=== PATIENT | male | born 1995 | race Caucasian/White ===

== ENCOUNTER 2022-07-23 23:23 | Emergency (ER) | payer OTHER, SELFPAY ==
[2022-07-23 23:30] VITALS: BP 133/88; PULSE 88; RESP 18; TEMP 37.1; O2SAT 93; BMI 23.5
--- NOTE | 2022-07-23 23:49 | ED.GENADULT ---
HPI - General Adult General Chief complaint: Shortness of Breath/Dyspnea Stated complaint: covid pos, fever, shortness of breath Time Seen by Provider: 07/23/22 23:28 History of Present Illness HPI narrative: Pt tested positive for COVID this AM @ 0800. Symptoms started yesterday. Fevers up to 103, SOB, and marked fatigue. Taking Aleve for fever which has been slightly helpful. Concerned about fatigue 26-year-old young man presenting to the emergency department with fever and fatigue beginning yesterday. Home COVID test quickly went positive. Measured fever up to 103. Feels a little short of breath just very tired. Is worried about the latter in particular. Thinks he probably got it when he was just down In [place]. Had taken 600 mg of ibuprofen an hour to an hour and a half ago. Was vaccinated for COVID. Would like help to bring down the fever. Related Data Home Medications Medication Instructions Recorded Confirmed No Known Home Medications 07/23/22 07/23/22 Allergies Allergy/AdvReac Type Severity Reaction Status Date / Time amoxicillin [From Augmentin] Allergy Intermediate Headache Verified 07/23/22 23:36 clavulanic acid Allergy Intermediate Headache Verified 07/23/22 23:36 [From Augmentin] Review of Systems Status of ROS: Reports: 6 or more systems reviewed and unremarkable except as noted in History and below [facility] Social History Smoking Status: Never smoker Do you use any of these nicotine containing products: None Second hand tobacco smoke exposure: No How often do you have a drink containing alcohol: monthly or less How many standard drinks containing alcohol do you have on a typical day: 1 or 2 How often do you have six or more drinks on one occasion: Never AUDIT-C Alcohol total score: 1 Non-prescribed substance use: denies use service: No Exam Narrative: Exam Narrative: Pleasant. NAD. Seems tired. Cranial nerves 2-12 intact. Skin is warm and dry no rashes apparent.. Cheeks little flushed. Breathing easily. Lungs are clear. Oropharynx is moist. Neck is supple without lymphadenopathy. Heart with regular rate and rhythm murmur rub or gallop appreciated. Extremities well perfused without edema. Const: Vital Signs, click to edit/add: Vital Signs - 24 hr 07/23/22 23:30 07/24/22 00:30 07/24/22 00:30 Temperature 98.7 F Pulse Rate Pulse Rate [Pulse Oximeter] 88 Respiratory Rate 18 Blood Pressure 115/76 Blood Pressure [Ri ght Upper Arm] 133/88 Pulse Oximetry 93 93 Oxygen Delivery Me thod Room Air 07/24/22 00:30 07/24/22 00:32 07/24/22 01:00 Temperature Pulse Rate 81 86 75 Pulse Rate [Pulse Oximeter] Respiratory Rate Blood Pressure 115/76 Blood Pressure [Ri ght Upper Arm] Pulse Oximetry 94 95 94 Oxygen Delivery Me thod 07/24/22 01:02 07/24/22 01:30 07/24/22 01:31 Temperature 98.0 F 98.0 F Pulse Rate 83 Pulse Rate [Pulse Oximeter] 84 84 Respiratory Rate 18 18 Blood Pressure 109/75 Blood Pressure [Ri ght Upper Arm] 125/78 125/78 Pulse Oximetry 95 95 Oxygen Delivery Me thod Room Air Documenting provider has reviewed patient's vital signs: yes Course Vital Signs Vital signs: Initial Vital Signs Temperature 98.7 F 07/23/22 23:30 Temperature Source Temporal Artery Scan 07/23/22 23:30 Pulse Rate 88 07/23/22 23:30 Pulse Rhythm Regular 07/23/22 23:30 Pulse Strength 3+ Normal 07/23/22 23:30 Respiratory Rate 18 07/23/22 23:30 Blood Pressure 133/88 07/23/22 23:30 Blood Pressure Mean 103 07/23/22 23:30 Blood Pressure Position Semi-Fowlers 07/23/22 23:30 Pulse Oximetry 93 07/23/22 23:30 Oxygen Delivery Method Room Air 07/23/22 23:30 Vital Signs Temperature 98.7 F 07/23/22 23:30 Pulse Rate 88 07/23/22 23:30 Respiratory Rate 18 07/23/22 23:30 Blood Pressure 133/88 07/23/22 23:30 Pulse Oximetry 93 07/23/22 23:30 Oxygen Delivery Method Room Air 07/23/22 23:30 Temperature 98.0 F 07/24/22 01:31 Pulse Rate 84 07/24/22 01:31 Respiratory Rate 18 07/24/22 01:31 Blood Pressure 125/78 07/24/22 01:31 Pulse Oximetry 95 07/24/22 01:30 Oxygen Delivery Method Room Air 07/24/22 01:30 Medical Decision Making MDM Narrative Medical decision making narrative: Is given acetaminophen. Thought would screen for influenza as well. On reassessment looks like he feels a little bit better. Seems to have better energy. Maintained oxygenation in the mid 90s and above. Indeed positive for COVID negative for influenza. See patient discharge plan Lab Data Lab results reviewed: Yes I reviewed the patient's lab results Labs: Lab Results 07/24/22 Range/Units 00:05 SARS-CoV-2 (PCR) POSITIVE SARS-CoV-2 A (Negative) Influenza Type A (PCR) Negative PCR FLU A (Negative) Influenza Type B (PCR) Negative PCR FLU B (Negative) Discharge Plan Discharge Clinical Impression: SARS-CoV-2 positive Patient Disposition: Home, Self-Care Condition: Stable Additional Instructions: Focus on hydration. Can take up to 800 mg of ibuprofen or up to 1000 mg of acetaminophen per dose. These can be combined as well. Return for increasing persistent shortness of breath where oxygen saturations are 90% or less. Unfortunately recommendations are to quarantine for 10 days from 1st day of symptoms. Prescriptions: No Action No Known Home Medications Follow Up/Referrals: Provider,Not a Local [Primary Care Provider] - Stand Alone Forms: [employer] Info Instructions
[2022-07-24] MEDS: ACETAMINOPHEN 500 MG TABLET 1000 MG PO (00:04)
--- OUTSIDE RECORDS SUMMARY | 2022-07-24 00:22 | XMS_ITS | Continuity of Care Document ---
Author Name Unknown Organization [facility] Address Unknown Care Team Providers Care Training Development Director Name Role Phone Sakina Xie Primary Care Physician Encounter [id number] Date(s): 02/06/22 - 02/06/22 [facility] [address] [address]- Encounter Diagnosis Acute upper respiratory infection of multiple sites(Discharge Diagnosis) - 02/06/22 Discharge Disposition: Home Attending Physician: Abiel Mayberry Allergies, Adverse Reactions, Alerts Substance Reaction Severity Status amoxicillin-clavulanate Acti ve Assessment and Plan Extracted from: Title:Family Medicine Office Visit Note Author:Abiel Nye Date:02/06/22 1.??Acute upper respiratory infection of multiple sites??J06.9 Reviewed negative strep, flu and covid results with patient. Due to length of symptoms will go ahead and send??antibiotic at this time. patient will be leaving back home to [place] tomorrow. The following education was given to patient: -rest -fluids -warm teas with honey and lemon -throat lozenges -cool mist humidifier -Flonase nasal spray -dayquil/nyquil as needed ? If worsening before patient leaves town??patient is to notify clinic. If worsening after hours or once he leaves [facility] would advise she proceed to urgent care clinic. Patient verbalized understanding and is in agreement of plan ? Ordered: azithromycin, Take 2 tablets PO on Day 1, then take 1 tablet, PO, Daily, as directed on package labeling, x 5 days, # 1 packet, 0 Refill(s), Route to Pharmacy Electronically, Pharmacy: [facility], [address], cm, 02/06/22 9:40:00 WAITER/WAITRESS CAFETERIA, Height Estima... ?? Orders: POC Influenza + SARS-CoV-2 Antigen (Clinic) POC Rapid Beta Strep (Clinic) Evaluation and Management 00487 Established Patient, expanded hx and exam, low mdm, office or other outpatient visit - Completed?-- Acute upper respiratory infection of multiple sites ?? Medications Cecilia PO, 0 Refill(s) Start Date: 11/02/21 Status: Ordered azithromycin 250 mg oral tablet Take 2 tablets PO on Day 1, then take 1 tablet, PO, Daily, as directed on package labeling, x 5 days, # 1 packet, 0 Refill(s), Route to Pharmacy Electronically, Pharmacy: [facility], [address], cm, 02/06/22 9:40:00 WAITER/WAITRESS CAFETERIA, Height Estima... 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 Results Laboratory List Name Date POC Influenza + SARS-CoV-2 Antigen (Clin ic) 02/06/22 POC Rapid Beta Strep (Clinic) 02/06/22 Most recent to oldest [Reference Range]: 1 POC Rapid Beta Strep Negative (02/06/22 10:04 AM) Rapid Influenza A Screen Negative (02/06/22 10:04 AM) Rapid Influenza B Screen Negative (02/06/22 10:04 AM) Internal QC Validated - Strep Yes (02/06/22 10:04 AM) POC SARS-CoV-2 Ag Not Detected (02/06/22 10:04 AM) Internal QC Validated- Flu + COVID Yes (02/06/22 10:04 AM) Vital Signs Most recent to oldest [Reference Range]: 1 Height (in) 68.9 inch (02/06/22 9:40 AM) Weight (kg) 69.94 kg (02/06/22 9:40 AM) Blood Pressure [94-140/60-90 mmHg] 128/8 2mmHg (02/06/22 9:40 AM) Oxygen Saturation [90-100 %] 97 % (02/06/22 9:40 AM) O2 Therapy Room air (02/06/22 9:40 AM) Temperature Tympanic [96-101 DegF] 97.8 DegF (02/06/22 9:40 AM) Body Mass Index, Estimated (cm) 22.84 kg /m2 (02/06/22 9:40 AM) Social History Social History Type Response Smoking Status Never (less than 100 in lifetime);Never entered on: 02/06/22 Sex Male Student Health Office/Clinic Note * Abiel Mayberry: PERFORM Event Display: Student Health Office/Clinic Note Authored Date: [id number] Date of Service 02/06/2022 09:13:42 Chief Complaint pt presents to the clinic for sore throat, congestion, headaches since last Sunday. pt taking Advil and Dayquil. History of Present Illness Patient presents to clinic for concerns of sore throat, congestion and cough. States he started with symptoms 6 days ago. Has progressively worsened. Loss of voice today. ?? fever-no congestion-yes sore throat-yes cough-yes SOB-no Wheezing-no NVD-no loss of taste or smell-no ?? States he has taken dayquil and advil for symptoms no sick exposures asthma as a child. No issues at this time Review of Systems Constitutional: ??No Chills, No Fatigue, No fever. ?? Eye: ??No discharge, No eye pain, No visual changes. ?? Ear/Nose/Mouth/Throat:?Nasal congestion, Sore throat, No ear pain, No sinus pain. ?? Respiratory:?Cough, No Sputum production, No shortness of breath, No wheezing. ?? Cardiovascular:?No chest pain, No palpitations, No Tachycardia, No Bradycardia. ?? Gastrointestinal: ??No diarrhea, No nausea, No vomiting, No abdominal pain. ?? Genitourinary: ??No dysuria. ?? Hematology/Lymphatics: ??No swollen lymph glands. ?? Integumentary: ??No rash. ?? Neurologic: ??Alert and oriented X4. ? Physical Exam Vitals & Measurements T:??97.8?F (Tympanic)?? BP:??128/82?? SpO2:??97%?? HT:??175??cm?? WT:??69.94??kg?? BMI:??22.84?? Pain Symptoms: No ?General: ??Alert and oriented, No acute distress. ?Eye: ??Pupils are equal, round and reactive to light, Extraocular movements are intact, Normal conjunctiva. ?HENT: ??Normocephalic, Normal hearing, Oral mucosa is moist. ? Ear: Both ears, Tympanic membrane ( Not bulging, Not erythematous, Not perforated ). ? Nose: Both nostrils, Patent, No Discharge. ? Sinus: Bilateral, Frontal sinus, Maxillary sinus, No tenderness. ? Throat: Tonsils ( Bilateral tonsils, Erythematous, No exudate ), Pharynx ( Posterior, Erythematous, No exudate ). ? Glands: Bilateral, Submandibular gland, Enlarged, Not tender.?Respiratory: ??Lungs are clear to auscultation, Respirations are non- labored, Breath soundsare equal, Symmetrical chest wall expansion. ?Cardiovascular: ??Normal rate, Regular rhythm, No murmur, No gallop. ?Musculoskeletal: ??Normal range of motion, Normal strength, No deformity, Normal gait. ?Integumentary: ??Warm, Dry, Mayer, Intact. ?Neurologic: ??Alert, Oriented. ?Psychiatric: ??Cooperative, Appropriate mood & affect. ? Assessment/Plan 1.??Acute upper respiratory infection of multiple sites??J06.9 Reviewed negative strep, flu and covid results with patient. Due to length of symptoms will go ahead and send??antibiotic at this time. patient will be leaving back home to [place] tomorrow. The following education was given to patient: -rest -fluids -warm teas with honey and lemon -throat lozenges -cool mist humidifier -Flonase nasal spray -dayquil/nyquil as needed ?? If worsening before patient leaves [facility]??patient is to notify clinic. If worsening after hours or once he leaves [facility] would advise she proceed to urgent care clinic. Patient verbalized understanding and is in agreement of plan Ordered: azithromycin, Take 2 tablets PO on Day 1, then take 1 tablet, PO, Daily, as directed on package labeling, x 5 days, # 1 packet, 0 Refill(s), Route to Pharmacy Electronically, Pharmacy: [facility], [address], cm, 02/06/22 9:40:00 WAITER/WAITRESS CAFETERIA, Height Estima... ?? Orders: POC Influenza + SARS-CoV-2 Antigen (Clinic) POC Rapid Beta Strep (Clinic) Evaluation and Management 20350 Established Patient, expanded hx and exam, low mdm, office or other outpatient visit - Completed?-- Acute upper respiratory infection of multiple sites Past Medical History Historical No qualifying data Procedure/Surgical History ???Appendectomy ???Extraction of wisdom tooth ???Tumor destruction Comments: x 3 in jaw Medications Cecilia, PO azithromycin 250 mg oral tablet, Take 2 tablets PO on Day 1, then take 1 tablet, PO, as directed onpackage labeling, Daily, as directed on package labeling Nasacort AQ 55 mcg/inh nasal spray, 1 spray, each nostril, Daily Allergies amoxicillin-clavulanate Social History Alcohol Alcohol Use: Occasionally., 11/17/2021 Gender Identity/Sexuality Gender Identity: Identifies as male., 11/02/2021 Recreational Drug Use Recreational Drug Use: Never used., 11/17/2021 Tobacco Tobacco Use: Never (less than 100 in lifetime). Smokeless Tobacco Use: Never., 02/06/2022 Vaping Vaping Device Use: Never. Nicotine Use: No., 11/17/2021 Family History Family history is negative Lab Results Test Name Test Result Date/Time POC Rapid Beta Strep Negative 02/06/2022 10:04 WAITER/WAITRESS CAFETERIA Rapid Influenza A Screen Negative 02/06/2022 10:04 WAITER/WAITRESS CAFETERIA Rapid Influenza B Screen Negative 02/06/2022 10:04 WAITER/WAITRESS CAFETERIA POC SARS-CoV-2 Ag Not Detected 02/06/2022 10:04 WAITER/WAITRESS CAFETERIA Point of Care Lab Tests?? POC Rapid Beta Strep: Negative (02/06/22 10:04:00) POC SARS-CoV-2 Ag: Not Detected. (02/06/22 10:04:00) Rapid Influenza A Screen: Negative (02/06/22 10:04:00) Rapid Influenza B Screen: Negative (02/06/22 10:04:00) Other Results AUDIT-C Score AUDIT-C Score: 2 (02/06/22) Abiel Mayberry Electronically Signed On: 02.06.2022 10:17 /LENIN D: 02.06.2022 10:17 cc: Patient Care team information Care Team Personnel Name: ABDI Weldon Position: MIDLVL-Workflow Member Role: Primary Care Physician Address: Address: [address] [place] [address] [address] , F: [address]
--- OUTSIDE RECORDS SUMMARY | 2022-07-24 00:22 | XMS_ITS | Continuity of Care Document ---
Author Name Unknown Organization [facility] Address Unknown Care Team Providers Care Autocad Detailer Name Role Phone Sakina Xie Primary Care Physician Encounter [id number] Date(s): 12/19/21 - 12/19/21 [facility] [address] [address]- Encounter Diagnosis Dysuria(Discharge Diagnosis) - 12/19/21 Vitamin D deficiency(Discharge Diagnosis) - 12/19/21 Wellness examination(Discharge Diagnosis) - 12/19/21 Screening for STD (sexually transmitted disease)(Discharge Diagnosis) - 12/19/21 Discharge Disposition: Home Attending Physician: ABDI Weldon Allergies, Adverse Reactions, Alerts Substance Reaction Severity Status amoxicillin-clavulanate Acti ve Medications Cecilia PO, 0 Refill(s) Start Date: 11/02/21 Status: Ordered Nasacort AQ 55 mcg/inh nasal spray 1 spray, each nostril, Daily, 0 Refill(s) Start Date: 11/02/21 Status: Ordered Problem List No Known Problems Procedures Procedure Date Related Diagnosis Body Site Status Appendectomy Completed Extraction of wisdom tooth Completed 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 Results Laboratory List Name Date CBC with Differential ([facility]) 2 Chlamydia & Gonorrhea by PCR ([facility]) (CT/NG PCR ([facility])) 12/19/21 Comprehensive Metabolic Panel ([facility] ) 12/19/21 HIV Screen 1 and 2 ([facility]) 12/19/21 RPR Non Treponemal ([facility]) 12/19/21 Trichomonas ([facility]) 12/19/21 Vitamin D 25 Hydroxy Total ([facility]) 1 Most recent to oldest [Reference Range]: 1 WBC [4.8-10.8 K/uL] 5.0 K/uL (12/19/21 11:56 AM) RBC [4.70-6.10 M/UL] 5.33 M/UL (12/19/21:56 AM) Hemoglobin [14.0-18.0 g/dL] 16.6 g/dL (12/19/21:56 AM) Hematocrit [42.0-52.0 %] 47.5 % (12/19/21:56 AM) MCV [80.0-94.0 fL] 89.0 fL (12/19/21:56 AM) MCH [27.0-31.0 pg] 31.0 pg (12/19/21: AM) MCHC [32.0-36.0 g/dL] 34.9 g/dL (12/19/21:56 AM) Platelet [130-400 K/uL] 246 K/uL (12/19/21:56 AM) RDW [11.5-15.5 %] 12.7 % (12/19/21:56 AM) Sodium Level [137-145 MMOL/L] 139 MMOL/L (12/19/21:56 AM) Potassium Level [3.6-5.0 MMOL/L] 4.1 MMO L/L (12/19/21:56 AM) Chloride Level [98-107 MMOL/L] 101 MMOL/ L (12/19/21:56 AM) Carbon Dioxide [22-30 MMOL/L] 31 MMOL/L *HI* (12/19/21:56 AM) Glucose Level [65-110 mg/dL] 106 mg/dL (12/19/21:56 AM) BUN [7.0-20.0 mg/dL] 17.0 mg/dL (12/19/21:56 AM) Creatinine [0.5-1.3 mg/dL] 1.1 mg/dL (12/19/21:56 AM) Calcium Level [8.4-10.2 mg/dL] 10.1 mg/d L (12/19/21:56 AM) Total Protein [6.30-8.50 g/dL] 7.50 g/dL (12/19/21 11:56 AM) Albumin Level [3.5-5.0 g/dL] 5.1 g/dL *HI* (12/19/21 11:56 AM) Total Bilirubin [0.20-1.30 mg/dL] 1.00 m g/dL (12/19/21 11:56 AM) Alkaline Phosphatase [38-126 intl units/ L] 41 intl units/L (12/19/21 11:56 AM) ALT [11-66 intl units/L] 26 intl units/L (12/19/21 11:56 AM) AST [15-46 intl units/L] 18 intl units/L (12/19/21 11:56 AM) RPR Titer [None Detected] None Detected (12/19/21 11:56 AM) MPV [7.4-10.4] 8.4 (12/19/21 11:56 AM) RPR Non Treponemal [Non-Reactive] Non-Re active (12/19/21 11:56 AM) NRBC 0.00 (12/19/21 11:56 AM) Vitamin D 25 Hydroxy Total [30.00-100.00 ng/mL] 37.51 ng/mL (12/19/21 11:57 AM) HIV Screen 1/2 [Non-Reactive] Non-Reacti ve 1 (12/19/21 11:56 AM) Automated Basophils [0.2-1.0 %] 0.6 % (12/19/21 11:56 AM) Automated Absolute Basophils [0.0-0.1 K/ uL] 0.0 K/uL (12/19/21 11:56 AM) Automated Absolute Eosinophils [0.0-0.2 K/uL] 0.1 K/uL (12/19/21 11:56 AM) Automated Absolute Lymphs [1.3-2.9 K/uL] 2.1 K/uL (12/19/21 11:56 AM) Automated Absolute Monocytes [0.3-0.8 K/ uL] 0.4 K/uL (12/19/21 11:56 AM) Automated Absolute Neutrophils [2.2-4.8 K/uL] 2.4 K/uL (12/19/21 11:56 AM) Automated Eosinophils [0.9-2.9 %] 1.4 % (12/19/21 11:56 AM) Automated Lymphocytes [20.5-45.5 %] 42.4 % (12/19/21 11:56 AM) Automated Monocytes [5.5-11.7 %] 7.7 % (12/19/21 11:56 AM) Automated Segmented Neutrophils [43.0-65 .0 %] 47.9 % (12/19/21 11:56 AM) Chlamydia by PCR [Not detected] NOT DETE CTED (12/19/21 11:57 AM) Neisseria gonorrhoeae PCR [Not detected] NOT DETECTED (12/19/21 11:57 AM) Trichomonas - PCR [Not detected] NOT DET ECTED (12/19/21 11:57 AM) 1Result Comment: This is a Screen Assay test: A NON-REACTIVE Test result means that HIV-1 and HIV-2 antibodies were not detected in the specimen. However, this does not exclude possible infection with HIV. A REACTIVE Test result means that HIV-1 and/or HIV-2 antibodies have been detected in the specimen. This is a Preliminary Positive for HIV-1 and/or HIV-2 antibodies. Any Preliminary Positive samples will be re-drawn at least one day later than the primary screen and sent to [facility] for Confirmation. Social History Social History Type Response Smoking Status Never (less than 100 in lifetime);Never entered on: 11/17/21 Sex Male Patient Care team information Care Team Personnel Name: ABDI Weldon Position: MIDLVL-Workflow Member Role: Primary Care Physician Address: Address: [address] [place] [address] [address] , F: [place], [place] [id number] [place] [address]
--- OUTSIDE RECORDS SUMMARY | 2022-07-24 00:22 | XMS_ITS | Continuity of Care Document ---
Author Name Unknown Organization [facility] Address Unknown Care Team Providers Care Motor Assembler Name Role Phone Sakina Xie Primary Care Physician [phone] Encounter [id number] Date(s): 02/06/22 - 02/06/22 [facility] [address] [address] [place] [address]- Discharge Disposition: Home Allergies, Adverse Reactions, Alerts Substance Reaction Severity Status amoxicillin-clavulanate Acti ve Medications Cecilia PO, 0 Refill(s) Start Date: 11/02/21 Status: Ordered azithromycin 250 mg oral tablet Take 2 tablets PO on Day 1, then take 1 tablet, PO, Daily, as directed on package labeling, x 5 days, # 1 packet, 0 Refill(s), Route to Pharmacy Electronically, Pharmacy: [facility], [address], cm, 02/06/22 9:40:00 DIGITAL ADVERTISING ANALYST, Height Estima... 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 [address] , F: [place] [address]- [place]
--- OUTSIDE RECORDS SUMMARY | 2022-07-24 00:23 | XMS_ITS | Continuity of Care Document ---
Author Name Unknown Organization [facility] Address Unknown Encounter [id number] Date(s): 11/02/21 - 11/02/21 [facility] [address] [place], [place] [address] Allergies, Adverse Reactions, Alerts Substance Reaction Severity [...] (less than 100 in lifetime);Never entered on: 11/02/21 Sex Male
--- OUTSIDE RECORDS SUMMARY | 2022-07-24 00:23 | XMS_ITS | Continuity of Care Document ---
Author Name Unknown Organization [facility] Address Unknown Encounter [id number] Date(s): 11/08/21 - 11/08/21 [facility] [address] [address] Encounter Diagnosis Dysuria(Discharge Diagnosis) - 11/08/21 Discharge Disposition: Home Attending Physician: ABDI Weldon Admitting Physician: ABDI Weldon Allergies, Adverse Reactions, Alerts Substance Reaction Severity Status amoxicillin-clavulanate Acti ve Assessment and Plan Extracted from: Title:Dysuria Author:ABDI Weldon Date: Dysuria??R30.0 Consider Mycoplasma Treatment today directed at mycoplasma Will repeat GCC testing. Patient desires blood work after Nov 17. Ok to repeat all testing at that time given risk Educated patient on today's diagnosis, proper use of prescribed and OTC medications and potential for side effects or adverse reactions. Discussed additional comfort measures available. Advised on return instructions as well as ER precautions.? Ordered: Chlamydia & Gonorrhea by PCR ([facility]) Chlamydia & Gonorrhea by PCR ([facility]) POC Urinalysis Dipstick, Automated w/o microscopy (Clinic) Trichomonas ([facility]) ?? Orders: moxifloxacin, 1 tab ( 400 mg ), PO, Daily, x 7 days, # 7 tab, 0 Refill(s), Route to Pharmacy Electronically, Pharmacy: [facility]/pharmacy #[id number] Evaluation and Management [id number] Established Patient, detail hx and exam, moderate mdm, office or other outpatient visit - Completed?-- Dysuria ?? Future Appointments Appointment Date:11/18/2021 12:40:00 PM Scheduled Provider: Location:[facility] Appointment Type:Special procedure Diagnostic Tests Pending * Chlamydia & Gonorrhea by PCR ([facility]) 11/08/21 * Trichomonas ([facility]) 11/08/21 Future Scheduled Tests Laboratory* Chlamydia & Gonorrhea by PCR ([facility]) 11/08/21 Medications Cecilia PO, 0 Refill(s) Start Date: 11/02/21 Status: Ordered moxifloxacin 400 mg oral tablet 1 tab ( 400 mg ), PO, Daily, x 7 days, # 7 tab, 0 Refill(s), Route to Pharmacy Electronically, Pharmacy: [facility]/pharmacy #[id number] Start Date: 11/08/21 Stop Date: 11/15/21 Status: Ordered Nasacort AQ 55 mcg/inh nasal spray 1 spray, each nostril, Daily, 0 Refill(s) Start Date: 11/02/21 Status: Ordered Problem List No Known Problems Procedures Procedure Date Related Diagnosis Body Site Status Appendectomy Completed Extraction of wisdom tooth Completed 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 Results Laboratory List Name Date POC Urinalysis Dipstick, Automated w/o m icroscopy (Clinic) 11/08/21 Most recent to oldest [Reference Range]: 1 Leukocytes Urine Dipstick Negative (11/08/21 3:09 PM) Nitrite Urine Dipstick Negative (11/08/21 3:09 PM) Urobilinogen Urine Dipstick 1 mg/dl (11/08/21 3:09 PM) pH Urine Dipstick 8.5 (11/08/21 3:09 PM) Blood Urine Dipstick Negative (11/08/21 3:09 PM) Specific [place] Urine Dipstick 1.015 (11/08/21 3:09 PM) Urine Color Urine Dipstick Pale yellow (11/08/21 3:09 PM) Urine Appearance Urine Dipstick Clear (11/08/21 3:09 PM) Glucose Urine Dipstick Negative (11/08/21 3:09 PM) Ketones Urine Dipstick Negative (11/08/21 3:09 PM) Bilirubin Urine Dipstick Negative (11/08/21 3:09 PM) Urine Automation Status automated withou t microscopy (11/08/21 3:09 PM) POC Protein Urine Dipstick Negative (11/08/21 3:09 PM) Vital Signs Most recent to oldest [Reference Range]: 1 Height (in) 68.9 inch (11/08/21 2:52 PM) Weight (kg) 73.94 kg (11/08/21 2:52 PM) Heart Rate [60-100 bpm] 79 bpm (11/08/21 2:52 PM) Blood Pressure [94-140/60-90 mmHg] 118/7 6mmHg (11/08/21 2:52 PM) Respiratory Rate [12-30 breaths/min] 16 breaths/min (11/08/21 2:52 PM) Oxygen Saturation [90-100 %] 97 % (11/08/21 2:52 PM) O2 Therapy Room air (11/08/21 2:52 PM) Temperature Tympanic [96-101 DegF] 98.0 DegF (11/08/21 2:52 PM) Body Mass Index, Estimated (cm) 24.14 kg /m2 (11/08/21 2:52 PM) Social History Social History Type Response Smoking Status Never (less than 100 in lifetime);Never entered on: 11/08/21 Sex Male
--- OUTSIDE RECORDS SUMMARY | 2022-07-24 00:23 | XMS_ITS | Continuity of Care Document ---
Author Name Unknown Organization [facility] Address Unknown Encounter [id number] Date(s): 11/17/21 - 11/17/21 [facility] [address] [address]- Encounter Diagnosis Dysuria(Discharge Diagnosis) - 11/17/21 History of thyroid disorder(Discharge Diagnosis) - 11/17/21 Wellness examination(Discharge Diagnosis) - 11/17/21 Family history of hypercholesterolemia(Discharge Diagnosis) - 11/17/21 Discharge Disposition: Home Attending Physician: ABDI Weldon Admitting Physician: ABDI Weldon Allergies, Adverse Reactions, Alerts Substance Reaction Severity Status amoxicillin-clavulanate Acti ve Assessment and Plan Extracted from: Title:Dysuria/ Urethritis Author:ABDI Weldon Date:11/17/21 Dysuria??R30.0 Assumed urethritis Assumed mycoplasma after negative GCC testing and persistent dysuria. Patient has had before. Did not fully resolve after 7 days moxy Treat with Doxy for 10 days Referral to Uro if not improved after Educated patient on today's diagnosis, proper use of prescribed and OTC medications and potential for side effects or adverse reactions. Discussed additional comfort measures available. Advised on return instructions as well as ER precautions.? STI labs today including blood ? Ordered: Chlamydia & Gonorrhea by PCR ([facility]) POC Urinalysis Dipstick, Automated w/o microscopy ([facility]) Trichomonas ([facility]) ?? Family history of hypercholesterolemia??Z83.42 General wellness labs today as well as cholesterol and thyroid panel Will notify of results Ordered: CBC with Differential ([facility]) Cholesterol Total ([facility]) Comprehensive Metabolic Panel ([facility]) Free T4 ([facility]) HIV Screen 1 and 2 ([facility]) Lipid with Calculated LDL ([facility]) RPR Non Treponemal ([facility]) Triglycerides ([facility]) TSH ([facility]) Vitamin D 25 Hydroxy Total ([facility]) ?? History of thyroid disorder??Z86.39 Ordered: CBC with Differential ([facility]) Cholesterol Total ([facility]) Comprehensive Metabolic Panel ([facility]) Free T4 ([facility]) HIV Screen 1 and 2 ([facility]) Lipid with Calculated LDL ([facility]) RPR Non Treponemal ([facility]) Triglycerides ([facility]) TSH ([facility]) Vitamin D 25 Hydroxy Total ([facility]) ?? Wellness examination??Z00.00 Ordered: CBC with Differential ([facility]) Cholesterol Total ([facility]) Comprehensive Metabolic Panel ([facility]) Free T4 ([facility]) HIV Screen 1 and 2 ([facility]) Lipid with Calculated LDL ([facility]) RPR Non Treponemal ([facility]) Triglycerides ([facility]) TSH ([facility]) Vitamin D 25 Hydroxy Total ([facility]) ?? Orders: doxycycline, 1 cap ( 100 mg ), PO, BID, x 10 days, # 20 cap, 0 Refill(s), Route to Pharmacy Electronically, Pharmacy: [facility]/pharmacy #[id number], 175, cm, 11/17/21 13:18:00 CDT, Height Estimated (cm), 72.57, kg, 11/17/21 13:18:00 CDT, Weight (kg) Evaluation and Management [id number] Established Patient, detail hx and exam, moderate mdm, office or other outpatient visit - Completed?-- Family history of hypercholesterolemia Wellness examination History of thyroid disorder Dysuria ?? Diagnostic Tests Pending * RPR Non Treponemal ([facility]) 11/17/21 * TSH ([facility]) 11/17/21 * Vitamin D 25 Hydroxy Total ([facility]) 11/17/21 * HIV Screen 1 and 2 ([facility]) 11/17/21 Future Scheduled Tests Laboratory* Chlamydia & Gonorrhea by PCR ([facility]) 11/08/21 Medications Cecilia PO, 0 Refill(s) Start Date: 11/02/21 Status: Ordered doxycycline monohydrate 100 mg oral capsule 1 cap ( 100 mg ), PO, BID, x 10 days, # 20 cap, 0 Refill(s), Route to Pharmacy Electronically, Pharmacy: [facility]/pharmacy #[id number], 175, cm, 11/17/21 13:18:00 CDT, Height Estimated (cm), 72.57, kg, 11/17/2212:18:00 CDT, Weight (kg) Start Date: 11/17/21 Stop Date: 11/27/21 Status: Ordered Nasacort AQ 55 mcg/inh nasal spray 1 spray, each nostril, Daily, 0 Refill(s) Start Date: 11/02/21 Status: Ordered Problem List No Known Problems Procedures Procedure Date Related Diagnosis Body Site Status Appendectomy Completed Extraction of wisdom tooth Completed 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 Results Laboratory List Name Date Trichomonas ([facility]) 11/17/21 CBC with Differential ([facility]) 11/17/21 Chlamydia & Gonorrhea by PCR ([facility]) 11/17/21 Comprehensive Metabolic Panel ([facility] ) 11/17/21 Free T4 ([facility]) 11/17/21 Lipid with Calculated LDL ([facility]) 11/17/21 POC Urinalysis Dipstick, Automated w/o m icroscopy ([facility]) 11/17/21 Most recent to oldest [Reference Range]: 1 WBC [4.8-10.8 K/uL] 4.7 K/uL *LOW* (11/17/21 1:42 PM) RBC [4.70-6.10 M/UL] 5.13 M/UL (11/17/21 1:42 PM) Hemoglobin [14.0-18.0 g/dL] 16.4 g/dL (11/17/21 1:42 PM) Hematocrit [42.0-52.0 %] 46.7 % (11/17/21 1:42 PM) MCV [80.0-94.0 fL] 90.9 fL (11/17/21 1:42 PM) MCH [27.0-31.0 pg] 31.9 pg *HI* (11/17/21 1:42 PM) MCHC [32.0-36.0 g/dL] 35.1 g/dL (11/17/21 1:42 PM) Platelet [130-400 K/uL] 235 K/uL (11/17/21 1:42 PM) RDW [11.5-15.5 %] 13.0 % (11/17/21 1:42 PM) Sodium Level [137-145 MMOL/L] 138 MMOL/L (11/17/21 1:42 PM) Potassium Level [3.6-5.0 MMOL/L] 3.9 MMO L/L (11/17/21 1:42 PM) Chloride Level [98-107 MMOL/L] 103 MMOL/ L (11/17/21 1:42 PM) Carbon Dioxide [22-30 MMOL/L] 29 MMOL/L (11/17/21 1:42 PM) Glucose Level [65-110 mg/dL] 108 mg/dL (11/17/21 1:42 PM) BUN [7.0-20.0 mg/dL] 16.0 mg/dL (11/17/21 1:42 PM) Creatinine [0.5-1.3 mg/dL] 1.1 mg/dL (11/17/21 1:42 PM) Calcium Level [8.4-10.2 mg/dL] 10.2 mg/d L (11/17/21 1:42 PM) Total Protein [6.30-8.50 g/dL] 7.50 g/dL (11/17/21 1:42 PM) Albumin Level [3.5-5.0 g/dL] 5.3 g/dL *HI* (11/17/21 1:42 PM) Cholesterol [0-200 mg/dL] 114 mg/dL (11/17/21 1:42 PM) Triglycerides [0-200 mg/dL] 61 mg/dL (11/17/21 1:42 PM) HDLC [35.0-100.0 mg/dL] 48.6 mg/dL (11/17/21 1:42 PM) Total Bilirubin [0.20-1.30 mg/dL] 1.40 m g/dL *HI* (11/17/21 1:42 PM) Alkaline Phosphatase [38-126 intl units/ L] 48 intl units/L (11/17/21 1:42 PM) ALT [11-66 intl units/L] 15 intl units/L (11/17/21 1:42 PM) AST [15-46 intl units/L] 15 intl units/L (11/17/21 1:42 PM) MPV [7.4-10.4] 8.5 (11/17/21 1:42 PM) T4 Free [0.78-2.19 ng/dL] 1.10 ng/dL (11/17/21 1:42 PM) Leukocytes Urine Dipstick Negative (11/17/21 1:23 PM) Nitrite Urine Dipstick Negative (11/17/21 1:23 PM) Urobilinogen Urine Dipstick 1 mg/dl (11/17/21 1:23 PM) pH Urine Dipstick 7 (11/17/21 1:23 PM) Blood Urine Dipstick Negative (11/17/21 1:23 PM) Specific [place] Urine Dipstick 1.020 (11/17/21 1:23 PM) Urine Color Urine Dipstick Yellow (11/17/21 1:23 PM) Urine Appearance Urine Dipstick Clear (11/17/21 1:23 PM) Glucose Urine Dipstick Negative (11/17/21 1:23 PM) Ketones Urine Dipstick Negative (11/17/21 1:23 PM) Bilirubin Urine Dipstick Negative (11/17/21 1:23 PM) NRBC 0.10 (11/17/21 1:42 PM) Automated Basophils [0.2-1.0 %] 0.9 % (11/17/21 1:42 PM) Automated Absolute Basophils [0.0-0.1 K/ uL] 0.0 K/uL (11/17/21 1:42 PM) Automated Absolute Eosinophils [0.0-0.2 K/uL] 0.0 K/uL (11/17/21 1:42 PM) Automated Absolute Lymphs [1.3-2.9 K/uL] 1.9 K/uL (11/17/21 1:42 PM) Automated Absolute Monocytes [0.3-0.8 K/ uL] 0.3 K/uL (11/17/21 1:42 PM) Automated Absolute Neutrophils [2.2-4.8 K/uL] 2.4 K/uL (11/17/21 1:42 PM) Automated Eosinophils [0.9-2.9 %] 0.9 % (11/17/21 1:42 PM) Automated Lymphocytes [20.5-45.5 %] 40.1 % (11/17/21 1:42 PM) Automated Monocytes [5.5-11.7 %] 6.3 % (11/17/21 1:42 PM) Automated Segmented Neutrophils [43.0-65 .0 %] 51.8 % (11/17/21 1:42 PM) Chlamydia by PCR [Not detected] NOT DETE CTED (11/17/21 2:23 PM) Neisseria gonorrhoeae PCR [Not detected] NOT DETECTED (11/17/21 2:23 PM) Internal QC Validated - Urine Yes (11/17/21 1:23 PM) Trichomonas - PCR [Not detected] NOT DET ECTED (11/17/21 2:23 PM) POC Protein Urine Dipstick Negative (11/17/21 1:23 PM) LDL Calculated 53 mg/dL (11/17/21 1:42 PM) Vital Signs Most recent to oldest [Reference Range]: 1 Height (in) 68.9 inch (11/17/21 1:18 PM) Weight (kg) 72.57 kg (11/17/21 1:18 PM) Heart Rate [60-100 bpm] 92 bpm (11/17/21 1:18 PM) Blood Pressure [94-140/60-90 mmHg] 104/7 6mmHg (11/17/21 1:18 PM) Respiratory Rate [12-30 breaths/min] 16 breaths/min (11/17/21 1:18 PM) Oxygen Saturation [90-100 %] 98 % (11/17/21 1:18 PM) O2 Therapy Room air (11/17/21 1:18 PM) Temperature Tympanic [96-101 DegF] 97.9 DegF (11/17/21 1:18 PM) Body Mass Index, Estimated (cm) 23.7 kg/ m2 (11/17/21 1:18 PM) Social History Social History Type Response Smoking Status Never (less than 100 in lifetime);Never entered on: 11/17/21 Sex Male
--- OUTSIDE RECORDS SUMMARY | 2022-07-24 00:23 | XMS_ITS | Continuity of Care Document ---
Author Name Unknown Organization [facility] Address Unknown Encounter [id number] Date(s): 11/02/21 - 11/02/21 [facility] [address] [address]- Encounter Diagnosis Increased urinary frequency(Discharge Diagnosis) - 11/02/21 Routine screening for STI (sexually transmitted infection)(Discharge Diagnosis) - 11/02/21 Encounter for laboratory test(Discharge Diagnosis) - 11/02/21 Discharge Disposition: Home Attending Physician: ABDI Mathew Admitting Physician: ABDI Mathew Allergies, Adverse Reactions, Alerts Substance Reaction Severity Status amoxicillin-clavulanate Acti ve Assessment and Plan Extracted from: Title:Urinary frequency Author:Jaymie Mathew Date:11/02/21 1.??Increased urinary freque ncy??R35.0 Ordered: Culture Urine ( Clinic) ?? 2.??Routine screening for STI (sexually transmitted infection)??Z11.3 IF SYMPTOMS HAVE NOT RESOLVED IN THE NEXT??7 DAYS RETURN TO CLINIC. ??IF SYMPTOMS DEVELOP (DISCHARGE FROM PENIS, PAIN WITH URINATION, TESTICLE PAIN/SWELLING, BACK PAIN, NAUSEA/VOMITING, ABDOMINAL PAIN, UNCONTROLLED FEVER >103 F, OR ANY SYMPTOMS YOU ARE CONCERNED ABOUT) GO DIRECTLY TO THE EMERGENCY ROOM ?? TYLENOL 500-1000 MG EVERY 8 HOURS NEEDED FOR PAIN/FEVER. ??IBUPROFEN 400-600 MG EVERY 8 HOURS NEEDED FOR PAIN/FEVER. ? Pt in NAD.?? Doubt SBI/pyelo.?? Unclear etiology.?? No evidence of infectious etiology on UA.?? Pending urine culture/GC/Chlamydia.?? Recommended watchful waiting along with tx as above. ? Orders: Chlamydia & Gonorrhea by PCR ([facility]) POC Urinalysis Dipstick, Automated w/o microscopy (Clinic) Diagnostic Tests Pending * Chlamydia & Gonorrhea by PCR ([facility]) 11/02/21 * Culture Urine ([facility]) 11/02/21 Medications Cecilia PO, 0 Refill(s) Start Date: [...] POC Urinalysis Dipstick, Automated w/o m icroscopy ([facility]) 11/02/21 Most recent to oldest [Reference Range]: 1 Leukocytes Urine Dipstick Negative (11/02/21 2:23 PM) Nitrite Urine Dipstick Negative (11/02/21 2:23 PM) Urobilinogen Urine Dipstick 1 mg/dl (11/02/21 2:23 PM) pH Urine Dipstick 6.5 (11/02/21 2:23 PM) Blood Urine Dipstick Negative (11/02/21 2:23 PM) Specific [place] Urine Dipstick 1.025 (11/02/21 2:23 PM) Urine Color Urine Dipstick Brown (11/02/21 2:23 PM) Urine Appearance Urine Dipstick Clear (11/02/21 2:23 PM) Glucose Urine Dipstick Negative (11/02/21 2:23 PM) Ketones Urine Dipstick Other: 80 mg/dL (11/02/21 2:23 PM) Bilirubin Urine Dipstick Moderate (11/02/21 2:23 PM) POC Protein Urine Dipstick 1+ (30 mg/dl) (11/02/21 2:23 PM) Vital Signs Most recent to oldest [Reference Range]: 1 Height (in) 68.9 inch (11/02/21 2:15 PM) Weight (kg) 72.57 kg (11/02/21 2:15 PM) Heart Rate [60-100 bpm] 75 bpm (11/02/21 2:15 PM) Blood Pressure [94-140/60-90 mmHg] 128/7 6mmHg (11/02/21 2:15 PM) Respiratory Rate [12-30 breaths/min] 15 breaths/min (11/02/21 2:15 PM) Oxygen Saturation [90-100 %] 98 % (11/02/21 2:15 PM) Temperature Tympanic [96-101 DegF] 97.3 DegF (11/02/21 2:15 PM) Body Mass Index, Estimated (cm) 23.7 kg/ m2 (11/02/21 2:15 PM) Social History Social History Type Response Smoking Status Never (less than 100 in lifetime);Never entered on: 11/02/21 Sex Male Hospital Discharge Instructions Patient Education 11/02/2021 14:36:46 Urinary Frequency, Adult Urinary Frequency, Adult Urinary frequency means urinating more often than usual. You may urinate every 1???2 hours even though you drink a normal amount of fluid and do not have a bladder infection or condition. Although you urinate more often than normal, the total amount of urine produced in a day is normal. With urinary frequency, you may have an urgent need to urinate often. The stress and anxiety of needing to find a bathroom quickly can make this urge worse. This condition may go away on its own or you may need treatment at home. Home treatment may include bladder training, exercises, taking medicines, or making changes to your diet. Follow these instructions at home: Bladder health ??? Keep a bladder diary if told by your health care provider. Keep track of: ??? What you eat and drink. ??? How often you urinate. ??? How much you urinate. ??? Follow a bladder training program if told by your health care provider. This may include: ??? Learning to delay going to the bathroom. ??? Double urinating (voiding). This helps if you are not completely emptying your bladder. ??? Scheduled voiding. ??? Do Kegel exercises as told by your health care provider. Kegel exercises strengthen the musclesthat help control urination, which may help the condition. Eating and drinking ??? If told by your health care provider, make diet changes, such as: ??? Avoiding caffeine. ??? Drinking fewer fluids, especially alcohol. ??? Not drinking in the evening. ??? Avoiding foods or drinks that may irritate the bladder. These include coffee, tea, soda, artificial sweeteners, citrus, tomato-based foods, and chocolate. ??? Eating foods that help prevent or ease constipation. Constipation can make this condition worse. Your health care provider may recommend that you: ??? Drink enough fluid to keep your urine pale yellow. ??? Take tzie-rff-gksennm or prescription medicines. ??? Eat foods that are high in fiber, such as beans, whole grains, and fresh fruits and vegetables. ??? Limit foods that are high in fat and processed sugars, such as fried or sweet foods. General instructions ??? Take avmi-izq-fxyksts and prescription medicines only as told by your health care provider. ??? Keep all follow-up visits as told by your health care provider. This is important. Contact a health care provider if: ??? You start urinating more often. ??? You feel pain or irritation when you urinate. ??? You notice blood in your urine. ??? Your urine looks cloudy. ??? You develop a fever. ??? You begin vomiting. Get help right away if: ??? You are unable to urinate. Summary ??? Urinary frequency means urinating more often than usual. With urinary frequency, you may urinate every 1???2 hours even though you drink a normal amount of fluid and do not have a bladder infection or other bladder condition. ??? Your health care provider may recommend that you keep a bladder diary, follow a bladder training program, or make dietary changes. ??? If told by your health care provider, do Kegel exercises to strengthen the muscles that help control urination. ??? Take asav-jse-ixzwmsr and prescription medicines only as told by your health care provider. ??? Contact a health care provider if your symptoms do not improve or get worse. This information is not intended to replace advice given to you by your health care provider. Make sure you discuss any questions you have with your health care provider. Document Revised: 09/12/2018 Document Reviewed: 09/12/2018 [employer] Patient Education ?? [employer] IF SYMPTOMS HAVE NOT RESOLVED IN THE NEXT 7 DAYS RETURN TO CLINIC. IF SYMPTOMS DEVELOP (DISCHARGE FROM PENIS, PAIN WITH URINATION, TESTICLE PAIN/SWELLING, BACK PAIN, NAUSEA/VOMITING, ABDOMINAL PAIN, UNCONTROLLED FEVER >103 F, OR ANY SYMPTOMS YOU ARE CONCERNED ABOUT) GO DIRECTLY TO THE EMERGENCY ROOM TYLENOL 500-1000 MG EVERY 8 HOURS NEEDED FOR PAIN/FEVER. IBUPROFEN 400-600 MG EVERY 8 HOURS NEEDED FOR PAIN/FEVER.
[2022-07-24 00:30] VITALS: BP 115/76; PULSE 81; O2SAT 93; O2SAT 94
[2022-07-24 00:32] VITALS: BP 115/76; PULSE 86; O2SAT 95
[2022-07-24 00:56] LABS: PCR FLU A Negative PCR FLU A (Negative); PCR FLU B Negative PCR FLU B (Negative)
[2022-07-24 01:00] VITALS: PULSE 75; O2SAT 94
[2022-07-24 01:01] LABS: SARS PCR* POSITIVE SARS-CoV-2 (Negative)
[2022-07-24 01:02] VITALS: BP 109/75; PULSE 83; O2SAT 95
[2022-07-24 01:30] VITALS: BP 125/78; PULSE 84; RESP 18; TEMP 36.7; O2SAT 95
[2022-07-24 01:31] VITALS: BP 125/78; PULSE 84; RESP 18; TEMP 36.7
== END 2022-07-24 01:31 | disposition home or self-care (01) ==
PROVIDERS: Emergency Provider Family Medicine
DX: U07.1 COVID-19 (principal); R50.9 Fever, unspecified
CPT/HCPCS: 87631; 94761; 99283; A9270